=== PATIENT | male | born 1990 | race Caucasian/White ===

== ENCOUNTER 2017-10-12 16:21 | Emergency (ER) | payer BC ==
[2017-10-12 16:28] VITALS: BP 105/54; PULSE 87; RESP 18; TEMP 98.4; O2SAT 95
--- NOTE | 2017-10-12 16:41 | EDPHY ---
H & P Stated Complaint: grinding metal got alaina in r eye Time Seen by Provider: 10/12/17 16:39 HPI/ROS: CHIEF COMPLAINT: Foreign body sensation right eye HISTORY OF PRESENT ILLNESS: The patient presents the ED with a foreign body sensation in his right eye. The patient reportedly was grinding metal when he developed the symptoms. The patient complains of mild pain. The patient denies additional injury. He has no additional acute complaints. REVIEW OF SYSTEMS: A comprehensive 10 point review of systems is otherwise negative aside from elements mentioned in the history of present illness. Source: Patient - Personal History Current Tetanus/Diphtheria Vaccine: Unsure - Medical/Surgical History Hx Asthma: No Hx Chronic Respiratory Disease: No Hx Diabetes: No Hx Cardiac Disease: No Hx Renal Disease: No Hx Cirrhosis: No Hx Alcoholism: No Hx HIV/AIDS: No Hx Splenectomy or Spleen Trauma: No Other PMH: denies - Social History Smoking Status: Never smoked - Physical Exam Exam: Visual Acuity: noted from Nurse's notes. Pupils: equal round and reactive to light EOMI Skin: no proptosis, no periorbital erythema or swelling, no vesicles Conjunctivae: not injected, no discharge Cornea: exam with fluorescein shows small corneal abrasion at the 3:00 position , no obvious metallic foreign body seen on slit-lamp exam Anterior chamber: normal, no hyphema or hypopyon Constitutional: Initial Vital Signs Temperature (C) 36.9 C 10/12/17 16:25 Heart Rate 87 10/12/17 16:25 Respiratory Rate 18 10/12/17 16:25 Blood Pressure 105/54 L 10/12/17 16:25 O2 Sat (%) 95 10/12/17 16:25 O2 Delivery Mode Room Air Allergies/Adverse Reactions: Penicillins Allergy (Verified 10/12/17 16:24) Home Medications: Medication Instructions Recorded INTUNIV 10/12/17 Ofloxacin 0.3% [Ocuflox 0.3% (RX)] 1 drops RTEYE 5XD #1 btl 10/12/17 VYVANSE 10/12/17 Medical Decision Making ED Course/Re-evaluation: The patient presents to the ED with a small corneal abrasion without evidence of an obvious foreign body. The patient will be started on Ocuflox eyedrops and advised to follow up with our on-call gauge controller for any residual eye pain or foreign body sensation which persists past 48 hr. The patient has been advised to follow up sooner for increasing eye pain discomfort or other concerns. Differential Diagnosis: Differential diagnosis considered includes the corneal abrasion, corneal foreign body, conjunctivitis Departure - Departure Disposition: Home, Routine, Self-Care Clinical Impression: Corneal abrasion Qualifiers: Encounter type: initial encounter Laterality: right Qualified Code(s): S05.01XA - Injury of conjunctiva and corneal abrasion without foreign body, right eye, initial encounter Condition: Good Instructions: Corneal Abrasion (ED) Additional Instructions: 1. Please follow up with Dr. Garcia our on-call gauge controller for any persistent eye pain or foreign body sensation which persists past 1-2 days. Please follow up sooner for increasing eye pain or other concerns. 2. Apply 1 antibiotic eye drop 5 times a day to the right eye. Referrals: Reg Garcia MD [Medical Doctor] - As per Instructions
[2017-10-12] MEDS ORDERED: PROPARACAINE 0.5% 15 ML OPHT DROP ONE (16:42)
[2017-10-12] MEDS ORDERED: FLUORESCEIN SODIUM 1 MG STRIP OP ONE (16:43)
== END 2017-10-12 17:00 | disposition home or self-care (01) ==
DX: S05.01XA Injury of conjunctiva and corneal abrasion without foreign body, right eye, initial encounter (principal); X58.XXXA Exposure to other specified factors, initial encounter